=== PATIENT | female | born 2000 | race Hispanic/Latino ===

== ENCOUNTER 2022-05-09 13:14 | Emergency (ER) | payer MEDICAID ==
[~2022-05-09] VITALS: Ht 162.6 cm; Wt 84.8 kg
[2022-05-09 13:36] VITALS: BP 128/69
[2022-05-09] MEDS ORDERED: CEPH500T PO (13:37)
== END 2022-05-09 13:47 | disposition home or self-care (01) ==
LOC: EDH 13:14
DX: B07.9 Viral wart, unspecified (principal); L03.116 Cellulitis of left lower limb